=== PATIENT | female | born 1950 ===

== ENCOUNTER 2024-02-18 05:32 | Observation (INO) ==
[~2024-02-18 05:32] MED LIST: Naloxone 0.4 mg VIAL 0.4 mg/ml 1 ml VIAL IV PRN; Ondansetron 4 mg VIAL 2 MG/ML 2 ml VIAL IV PRN; ROPIVACAINE 5 MG/ML 30 ML BTL (0.5%) ONE
[2024-02-18] MEDS: Lactated Ringers 1000 ml BAG 1,000 ML IV SCH ×2 (06:33→12:28)
[2024-02-18] MEDS: Buffered Lidocaine 1% SYRIN 1 ml INTRADERM ONE (06:33)
[2024-02-18] MEDS ORDERED: Midazolam 2 mg/2 ml VIAL 1 mg/ml 2 ml VIAL (2 mg) ONE ×2 (06:35→07:07)
[2024-02-18] MEDS ORDERED: Dexamethasone IV 4 MG/ML VIAL 1 ml VIAL ONE (06:35)
[2024-02-18] MEDS ORDERED: ROPIVACAINE 5 MG/ML 30 ML BTL (0.5%) ONE (06:35)
[2024-02-18] MEDS ORDERED: ceFAZolin 2 GM PREMIX 2 GM/50 ML BAG ONE (06:44)
[2024-02-18] MEDS ORDERED: Tranexamic Acid 1 GM/100ML BAG 2,000 MG/200 ML BAG IV ONE (06:44)
[2024-02-18] MEDS ORDERED: Propofol 10 mg/ml 100 ML BTL 3,000 MG/300 ML BTL ONE (07:03)
[2024-02-18] MEDS ORDERED: fentaNYL 100 mcg/2 ml 50 MCG/ML VIAL ONE ×2 (07:13→11:07)
[2024-02-18] MEDS ORDERED: Rocuronium 50 mg VIAL 10 mg/ml 5 ml VIAL (50 mg) ONE (07:14)
[2024-02-18 07:15] LABS: Rapid COVID-19 Molecular Undetected (Undetected)
[2024-02-18] MEDS ORDERED: Ondansetron ODT 4 mg TAB 4 MG TAB PO PRN (07:47)
[2024-02-18] MEDS ORDERED: Lactulose 30 ml UDC PO PRN (07:47)
[2024-02-18] MEDS ORDERED: Calcium Carb (TUMS) 500 mg CHEW TAB PO PRN (07:47)
[2024-02-18] MEDS ORDERED: Morphine 2 MG/ML SYRINGE IV PRN (07:47)
[2024-02-18] MEDS ORDERED: Magnesium Hydroxide LIQ 30 ML UDC PO PRN (07:47)
[2024-02-18] MEDS ORDERED: HYDROmorphone 0.5 MG/0.5 ML SYRINGE ONE ×2 (08:20→08:45)
[2024-02-18] MEDS ORDERED: KETAMINE HCL 10 MG/ML 20 ml VIAL (200 MG) ONE (08:20)
[2024-02-18] MEDS: fentaNYL 100 mcg/2 ml 50 MCG/ML VIAL IV PRN (11:07)
[2024-02-18] MEDS: Ondansetron 4 mg VIAL 2 MG/ML 2 ml VIAL IV PRN (12:47)
[2024-02-18] MEDS: Magnesium Hydroxide LIQ 30 ML UDC PO SCH (13:03)
[2024-02-18] MEDS: Vitamin THERAPEUTIC TAB PO SCH (13:03)
[2024-02-18 16:02] VITALS: BP 119/63
[2024-02-18] MEDS: ceFAZolin 2 GM PREMIX 2 GM/50 ML BAG IV SCH (16:06)
== END 2024-02-18 18:16 | disposition home or self-care (01) ==
LOC: SSU 05:32 → OR 05:32
PROVIDERS: ADMIT Orthopaedic Surgery Adult Reconstructive Orthopaedic Surgery; ATTEND Orthopaedic Surgery Adult Reconstructive Orthopaedic Surgery